=== PATIENT | male | born 1985 ===

== ENCOUNTER 2024-01-10 15:31 | Emergency (ER) | payer SELFPAY ==
[2024-01-10 15:34] VITALS: BP 160/99; PULSE 80; RESP 17; TEMP 36.8; O2SAT 100; BMI 27.2
--- NOTE | 2024-01-10 16:39 | ED_ITS ---
HPI - Wound/Laceration <ROJELIO Munoz - Last Filed: 01/10/24 16:52> General Chief Complaint: Wound/Laceration Stated Complaint: lt hand Lac Time Seen by Provider: 01/10/24 15:45 History of Present Illness HPI narrative: 38-year-old male, never smoker, presents to the emergency department with a left forefinger laceration after wiping down a bar glass earlier today. Patient reports significant bleeding that was covered with gauze before presenting to [facility] emergency department. Last tetanus shot was approximately 6 months ago. Related Data Allergies Allergy/AdvReac Type Severity Reaction Status Date / Time No Known Drug Allergies Allergy Verified 01/10/24 15:34 Review of Systems <ROJELIO Munoz - Last Filed: 01/10/24 16:52> Review of Systems Narrative: Narrative: See HPI. GENERAL: Denies chills, fatigue, fever, sweats. HEENT: Denies sinus pain, ear pain, sore throat, difficulty swallowing, dizziness. RESPIRATORY: Denies dyspnea, cough, wheezing, sputum. CARDIOVASCULAR: Denies chest pain, palpitations, edema. GASTROINTESTINAL: Denies nausea, vomiting, abdominal pain, diarrhea, constipation. MSK: Denies weakness, joint pain, or bony pain. SKIN: Denies rash, skin lesions, or pruritis. Endorses laceration of left index finger. NEUROLOGIC: Denies weakness, dizziness, headache, numbness, confusion. Patient History <ROJELIO Munoz - Last Filed: 01/10/24 16:52> Social History Smoking Status: Never smoker Smoking Status: Never smoker alcohol intake frequency: holidays/special occasions only Substance Use Type: marijuana Exam <ROJELIO Munoz - Last Filed: 01/10/24 16:52> Narrative Exam Narrative: Exam Narrative: GENERAL: This is a well-nourished, well-developed patient, in no acute distress HEAD: Atraumatic. Normocephalic. ENT: Nose without bleeding, purulent drainage. Airway patent. TMs and canals clear. RESPIRATORY: Respiratory rate and effort are normal. MSK: Moves all extremities. Normal range of motion, no clubbing or edema. Neurovascularly intact. NEURO: A&O x 3. SKIN: Warm, dry, no rashes or lesions noted. 2.5 cm v-shaped laceration noted to left index finger proximal phalange near knuckle. Initial Vital Signs Initial Vital Signs: Vital Signs Temperature 98.3 F 01/10/24 15:34 Pulse Rate 80 01/10/24 15:34 Respiratory Rate 17 01/10/24 15:34 Blood Pressure 160/99 H 01/10/24 15:34 Pulse Oximetry 100 01/10/24 15:34 Oxygen Delivery Method Room Air 01/10/24 15:34 Reviewed <Jennifer Reed DO - Last Filed: 01/11/24 07:42> Initial Vital Signs Initial Vital Signs: Vital Signs Temperature 98.3 F 01/10/24 15:34 Pulse Rate 80 01/10/24 15:34 Respiratory Rate 17 01/10/24 15:34 Blood Pressure 160/99 H 01/10/24 15:34 Pulse Oximetry 100 01/10/24 15:34 Oxygen Delivery Method Room Air 01/10/24 15:34 Procedures <ROJELIO Munoz - Last Filed: 01/10/24 16:52> Laceration Repair Laceration 1: Time of procedure: 16:30 Site: hand Side (If applicable): left Size (cm): 2.5 Description: flap Depth: simple, single layer Local Anesthetic: lidocaine 2% Amount of anesthesia used (mL): 5 Skin layer closed with: nylon Skin layer suture size: 5-0 Number of sutures: 11 Technique: simple, interrupted Course <ROJELIO Munoz - Last Filed: 01/10/24 16:52> Orders Ordered: Discontinued Medications Bacitracin (Bacitracin Oint 0.9 Gm Pckt) 1 applic TOP NOW ONE Stop: 01/10/24 16:20 Last Admin: 01/10/24 16:49 Dose: 1 applic Documented By: ES Vital Signs Vital signs: Vital Signs - 8 hr 01/10/24 15:34 Temperature 98.3 F Pulse Rate 80 Respiratory Rate 17 Blood Pressure 160/99 H Pulse Oximetry 100 Oxygen Delivery Method Room Air <Jennifer Reed DO - Last Filed: 01/11/24 07:42> Orders Ordered: Discontinued Medications Bacitracin (Bacitracin Oint 0.9 Gm Pckt) 1 applic TOP NOW ONE Stop: 04/14/24 16:20 Last Admin: 01/10/24 16:49 Dose: 1 applic Documented By: BRITTNEY Vital Signs Vital signs: Vital Signs - 8 hr 01/10/24 15:34 Temperature 98.3 F Pulse Rate 80 Respiratory Rate 17 Blood Pressure 160/99 H Pulse Oximetry 100 Oxygen Delivery Method Room Air MDM - Wound/Laceration <Dedrick PatelROJELIO - Last Filed: 01/10/24 16:52> Differential Diagnosis Differential diagnosis: Likely laceration MDM Narrative Medical decision making narrative: 38-year-old male with left hand laceration. Site was anesthetized, cleansed, irrigated with copious amounts of water and closed with 11 sutures. Patient tolerated procedure well. Site was dressed with antibiotic ointment and gauze. Tetanus is up-to-date. Discussed proper wound care with patient, and signs of infection that would require an immediate return. Instructed patient to follow up with family doctor, present to the [place] walk-in clinic or return to the emergency department in 10-14 days for suture removal. Patient verbalized understanding and was agreeable with course of action. Discharge Plan Departure Patient Disposition: Home Clinical Impression: Laceration Instructions: DI for Laceration Repair Activity Restrictions/Additional Instructions: *You have been diagnosed with a left hand laceration. We were able to close the laceration with 11 sutures. Please follow-up with your family doctor, [facility] walk-in clinic or return to the emergency department in 10-14 days for suture removal. Please watch for signs of infection that include increased redness, swelling, yellow discharge, etc.. If this occurs, please return immediately for antibiotic therapy. Your tetanus is up-to-date. You may want keep the hand elevated as much as possible over the next 24 hours and take Tylenol or ibuprofen as needed for discomfort. *What to do: *Please continue to take your regular medications as directed. [ ] New medication prescriptions sent to your pharmacy: [ ] [ ] New medication written as a paper prescription [ x] No new medications given *Please follow up with your primary care provider in 2-3 days, call for an appointment. Let them know you were seen in the Emergency Department and that we ask that you be seen in follow up. We will electronically transmit a record of today's note if your PCP is in our system *If you do not have a primary care provider please contact the [facility] Resource line at [phone]. They will ask some questions about your medical history and help get you set up with a doctor in the community. ? Return to ER if you should have any new, worsening or concerning symptoms, such as worsening pain, severe headache, confusion, chest pain, difficulty breathing, fever greater than 101 F, shaking chills, persistent vomiting to the point that you cannot drink fluids, or other new or worsening symptoms. Stand Alone Forms: Patient Portal/API ED Sign-out <Jennifer Reed DO - Last Filed: 01/11/24 07:42> Cosign ED Attending [place] Attestation: I was immediately available in the department for consultation.
[2024-01-10] MEDS: BACITRACIN OINT 0.9 GM PCKT 1 APPLIC TOP (16:49)
== END 2024-01-10 17:15 | disposition home or self-care (01) ==
LOC: ED 17:14
PROVIDERS: Emergency Provider Registered Nurse
DX: S61.211A Laceration without foreign body of left index finger without damage to nail, initial encounter (principal); W25.XXXA Contact with sharp glass, initial encounter
CPT/HCPCS: 99283